=== PATIENT | male | born 1980 | race African-American/Black ===

== ENCOUNTER 2018-10-18 18:10 | Emergency (ER) | payer SELFPAY ==
[~2018-10-18] VITALS: Ht 175.3 cm; Wt 93.0 kg
--- NOTE | 2018-10-18 18:11 | NUR ---
Note undone in EDM - 10/18/18 at 1812 by AYSHA ED Nurse Note: PT BROUGHT IN BY [facility]. PT IN CUSTODY. AT BEDSIDE. PT HERE FOR MED CLEARANCE. PT STATES HE HAS HX OF DM2. ACCUCHECK DONE. B. ADY PHAM NOTIFIED. PT STATES HE IS ASYMPTOMATIC. PT DENIES ANY PAIN.
--- NOTE | 2018-10-18 18:11 | NUR ---
ED Nurse Note: PT BROUGHT IN BY [facility]. PT IN CUSTODY. AT BEDSIDE. PT HERE FOR MED CLEARANCE. PT STATES HE HAS HX OF DM2. ACCUCHECK DONE. B. ADY PHAM NOTIFIED. PT STATES HE HAS NO COMPLAINTS. PT DENIES ANY PAIN.
[2018-10-18 18:15] VITALS: BP 138/92
[2018-10-18] MEDS ORDERED: metFORMIN 500mg tab ORAL SCH (18:15)
--- NOTE | 2018-10-18 18:20 | Emergency Room Report ---
History of Present Illness General Chief Complaint: Medical Clearance Source: Patient Present Illness HPI 37-year-old male patient presents the ER brought in by police for clearance for incarceration. Per police, was booked for identity theft, while at the police station was informed that he has diabetes so brought him to the ER. Patient denies acute complaints currently. Denies fever, chest pain, shortness of breath, abdominal pain. Reports history of type II diabetes, states is well controlled, states that he takes metformin twice a day, states that he is only taken once a day. Denies vomiting or diarrhea. Denies other aggravating or relieving factors. Allergies: Coded Allergies: No Known Allergies (Unverified , 10/18/18) Patient History Past Medical History: see triage record Reviewed Nursing Documentation: PMH: Agreed; PSxH: Agreed Nursing Documentation-PMH Hx Diabetes: Yes - Type 2 Review of Systems All Other Systems: negative except mentioned in HPI Physical Exam Vital Signs Date Time Temp Pulse Resp B/P (MAP) Pulse Ox O2 Delivery O2 Flow Rate FiO2 10/18/18 18:11 98.8 97 18 143/97 98 Room Air Sp02 EP Interpretation: reviewed, normal General Appearance: well appearing, no apparent distress, alert, GCS 15, non- toxic Head: normocephalic, atraumatic Eyes: bilateral eye normal inspection, bilateral eye PERRL ENT: hearing grossly normal, normal pharynx, no angioedema, normal voice, uvula midline, moist mucus membranes Neck: full range of motion, no bony tend Respiratory: lungs clear, normal breath sounds, no rhonchi, no respiratory distress, no accessory muscle use, no wheezing, speaking full sentences Cardiovascular #1: regular rate, rhythm, no edema Gastrointestinal: non tender, soft, no mass, non-distended, no guarding, no rebound Genitourinary: no CVA tenderness Musculoskeletal: back normal, digits/nails normal, gait/station normal, normal range of motion, non-tender Neurologic: alert, oriented x3, responsive, motor strength/tone normal, sensory intact Psychiatric: mood/affect normal Skin: no rash Lymphatic: no adenopathy Medical Decision Making PA Attestation Dr. Daniels is my supervising Physician whom patient management has been discussed with. Diagnostic Impression: Primary Impression: Medical clearance for incarceration Additional Impression: History of diabetes mellitus, type II ER Course Pt. presents to the ED requesting medical clearance for booking. Multiple differentials considered Including but not limited to hyperglycemia, DKA, hypoglycemia . Patient Vitals Signs WNL, patient is afebrile. ER COURSE: Patient denies acute complaints. PE benign. No skull depression, lungs clear to auscultation, no abdominal TTP. No Kussmaul respirations. Low suspicion for DKA. Patient not suicidal or homicidal at this time. Patient in no acute distress, nontoxic appearing, breathing without difficulty. Accu-Chek in the ER 293, will provide patient with his second dose of metformin in the ER. Follow-up with primary care provider. Monitor glucose. Take medications as instructed. ER precautions given. DISCHARGE: At this time pt. is stable for d/c to police custody. Will provide printed patient care instructions, and any necessary prescriptions. Care plan and follow up instructions have been discussed with the patient prior to discharge - Please note that this Emergency Department Report was dictated using [employer] software, occasionally this can lead to erroneous entry secondary to interpretation by the dictation equipment. Last Vital Signs Date Time Temp Pulse Resp B/P (MAP) Pulse Ox O2 Delivery O2 Flow Rate FiO2 10/18/18 18:11 98.8 97 18 143/97 98 Room Air Status: improved Disposition: HOME, SELF-CARE Condition: Stable Patient Instructions: Diabetes Mellitus and Food Additional Instructions: Followup with primary care provider in 3 -5 days. Monitor blood glucose regularly. Take medications as directed. Patient questions asked and answered. ER precautions given, patient instructed to return to ER immediately for any new or worsening of symptoms. Jose Pak Oct 18, 2018 18:20
[2018-10-18 18:23] VITALS: BP 136/88
--- NOTE | 2018-10-18 18:24 | NUR ---
ED Nurse Note: PT SITTING PEACEFULLY IN BED IN NAD. AOX4. [facility] AT BEDSIDE. DISCHARGE PAPERWORK EXPLAINED TO PT. PT VERBALIZES UNDERSTANDING AND ALL QUESTIONS ANSWERED. DISCHARGE PAPERWORK GIVEN TO AND ID WRISTBAND REMOVED. PT WALKED OUT OF ER WITH STEADY GAIT AND ALL BELONGINGS ESCORTED BY [facility].
== END 2018-10-18 19:00 | disposition home or self-care (01) ==
LOC: EMR 19:00
DX: E11.9 Type 2 diabetes mellitus without complications (principal); Z79.84 Long term (current) use of oral hypoglycemic drugs
CPT/HCPCS: 99282